=== PATIENT | female | born 1965 | race Hispanic/Latino ===

== ENCOUNTER 2016-12-27 10:04 | Emergency (ER) | payer MEDICARE ==
[2016-12-27 10:29] VITALS: PULSE 88; RESP 20; TEMP 98; O2SAT 97
--- NOTE | 2016-12-27 11:06 | ED PDOC ---
HPI: Head Injury Time Seen by Provider: 12/27/16 10:40 Chief Complaint (Nursing): Headache Chief Complaint (Provider): Head injury History Per: Patient History/Exam Limitations: no limitations Injury Occurred (Timing): Hours Ago: (1) Additional Complaint(s): Aleena is a 51 y/o female who presents to the ED for evaluation of head injury. States that she had a heavy object fall from 2 ft onto her head, 1 hour prior to ER arrival. No loss of consciousness. Noted moderate pain and swelling initially, which resolved after icing the area. Patient concerned because of history of head trauma 6 years ago that resulted in ongoing vestibular dysfunction. Denies any vomiting, weakness, or alcohol consumption today. Blood pressure taken manually was 130/70 PMD: None Past Medical History Reviewed: Historical Data, Nursing Documentation, Vital Signs Vital Signs: Last Vital Signs Temp 98 F 12/27/16 10:24 Pulse 88 12/27/16 10:24 Resp 20 12/27/16 10:24 BP Pulse Ox 97 12/27/16 10:24 - Medical History Other PMH: vestibular dysfunction - Family History Family History: States: Unknown Family Hx - Allergies Allergies/Adverse Reactions: Allergies Allergy/AdvReac Type Severity Reaction Status Date / Time No Known Allergies Allergy Verified 12/27/16 10:24 Review of Systems ROS Statement: Except As Marked, All Systems Reviewed And Found Negative Constitutional: Positive for: Other (Head trauma) Neurological: Positive for: Headache. Negative for: Other (Loss of consciousness) Physical Exam - Reviewed Nursing Documentation Reviewed: Yes Vital Signs Reviewed: Yes - Physical Exam Appears: Positive for: Non-toxic, No Acute Distress Head Exam: Positive for: ATRAUMATIC, NORMAL INSPECTION (no oculus swelling or laceration noted to posterior head), NORMOCEPHALIC Skin: Positive for: Normal Color, Warm, Dry Eye Exam: Positive for: EOMI, Normal appearance, PERRL ENT: Positive for: Normal ENT Inspection Neck: Positive for: Normal, Supple Cardiovascular/Chest: Positive for: Regular Rate, Rhythm. Negative for: Murmur Respiratory: Positive for: Normal Breath Sounds. Negative for: Accessory Muscle Use, Respiratory Distress Gastrointestinal/Abdominal: Positive for: Normal Exam, Soft. Negative for: Tenderness Back: Positive for: Normal Inspection Extremity: Positive for: Normal ROM (but has difficulty performing heel to currie) , Other (5/5 strength upper and lower extremities). Negative for: Deformity Neurologic/Psych: Positive for: Alert, sponge clipper II-XII (intact), Oriented. Negative for: Motor/Sensory Deficits - ECG O2 Sat by Pulse Oximetry: 97 (RA) Pulse Ox Interpretation: Normal - Progress ED Course And Treament: Head CT: nad Medical Decision Making Medical Decision Making: Time: 10:52 Initial Plan: --Extensive discussion about the risks and benefits of CT scan --Patient requesting CT evaluation of head injury at this time --Will order CT Head w/o contrast Scribe Attestation: Documented by Esme Rayo, acting as a scribe for Jorge Rosa PA-C Provider Scribe Attestation: All medical record entries made by the Scribe were at my direction and personally dictated by me. I have reviewed the chart and agree that the record accurately reflects my personal performance of the history, physical exam, medical decision making, and the department course for this patient. I have also personally directed, reviewed, and agree with the discharge instructions and disposition. Disposition - Clinical Impression Clinical Impression: Head injury - Patient ED Disposition Is Patient to be Admitted: No - Disposition Disposition: Routine/Home Disposition Time: 12:05 Condition: FAIR Instructions: Head Injury (ED) Forms: [employer] (Urdu)
[2016-12-27 11:16] VITALS: BP 130/70
--- NOTE | 2016-12-27 11:25 | CT ---
PROCEDURE: CT HEAD WITHOUT CONTRAST. HISTORY: HEAD INJURY COMPARISON: 11/14/2010. TECHNIQUE: Axial computed tomography images were obtained through the head/brain without intravenous contrast. Coronal and sagittal reconstructed images. Radiation dose: Total exam DLP = 831.84 mGy-cm. This CT exam was performed using one or more of the following dose reduction techniques: Automated exposure control, adjustment of the mA and/or kV according to patient size, and/or use of iterative reconstruction technique. FINDINGS: HEMORRHAGE: No intracranial hemorrhage. BRAIN: No mass effect or edema. No atrophy or chronic microvascular ischemic changes. VENTRICLES: Unremarkable. No hydrocephalus. CALVARIUM: Unremarkable. PARANASAL SINUSES: Unremarkable as visualized. No significant inflammatory changes. MASTOID AIR CELLS: Unremarkable as visualized. No inflammatory changes. OTHER FINDINGS: None. IMPRESSION: No acute intracranial abnormalities. No significant findings to account for the clinical presentation. No significant interval change compared to the prior examination(s).
== END 2016-12-27 13:39 | disposition home or self-care (01) ==
LOC: H.ER 10:04
DX: S09.90XA Unspecified injury of head, initial encounter (principal); W22.8XXA Striking against or struck by other objects, initial encounter; Y92.89 Other specified places as the place of occurrence of the external cause

== ENCOUNTER 2017-06-22 16:09 | Emergency (ER) | payer MEDICARE, BC ==
[2017-06-22 16:52] VITALS: BP 140/83; O2SAT 100
[2017-06-22 19:07] LABS: BASO # 0.1 K/uL (0.0-0.2); BASO % 0.5 % (0.0-2.0); EOS # 0.1 K/uL (0.0-0.7); EOS % 0.6 % (0.0-4.0); HEMOGLOBIN 12.7 g/dL (12.0-16.0); LYMPH # 2.8 K/uL (1.0-4.3); LYMPH % 21.3 % (20.0-40.0); MEAN CELL VOLUME 88.7 fl (81.0-99.0); MEAN CORPUSCULAR HEMOGLOBIN 30.1 pg (27.0-31.0); MEAN PLATELET VOLUME 7.8 fl (7.2-11.7); MONO # 0.8 K/uL (0.0-0.8); NEUT # 9.3 K/uL (1.8-7.0); NEUT % 71.6 % (50.0-75.0); NRBC % 0.1 % (0.0-0.0); RBC 4.22 Mil/uL (3.80-5.20); RED CELL DISTRIBUTION WIDTH 13.6 % (11.5-14.5)
[2017-06-22 19:20] LABS: ALB/GLOB RATIO 1.2 (1.0-2.1); ALT/SGPT 34 U/L (9-52); AST/SGOT 21 U/L (14-36); BLOOD UREA NITROGEN 12 mg/dl (7-17); CALCIUM 9.3 mg/dL (8.4-10.2); GFR AFRICAN-AMERICAN > 60; GFR NON-AFRICAN AMERICAN > 60
--- NOTE | 2017-06-22 19:31 | ED PDOC ---
HPI: General Adult Time Seen by Provider: 06/22/17 17:05 Chief Complaint (Nursing): GI Problem History Per: Patient Additional Complaint(s): Pt. states today she developed crampy abdominal pain with the urge to use defecate. States she strained to have a BM and afterwards she lied down as she developed chills which has since resolved. Also states that pain resolved after defecating. Denies chest pain, SOB, palpitations, weakness, fever, melena, hematochezia, BRBPR, rectal pain. Past Medical History Reviewed: Historical Data, Nursing Documentation, Vital Signs Vital Signs: Last Vital Signs Temp 97.7 F 06/22/17 20:10 Pulse 88 06/22/17 20:10 Resp 18 06/22/17 20:10 BP 140/83 06/22/17 16:45 Pulse Ox 100 06/24/17 11:07 - Surgical History Surgical History: Appendectomy - Family History Family History: States: No Known Family Hx - Immunization History Hx Tetanus Toxoid Vaccination: No Hx Influenza Vaccination: No Hx Pneumococcal Vaccination: No - Allergies Allergies/Adverse Reactions: Allergies Allergy/AdvReac Type Severity Reaction Status Date / Time acetaminophen [From Percocet] Allergy RASH Verified 06/22/17 16:53 piper Allergy RASH Verified 06/22/17 16:53 clarithromycin [From Biaxin] Allergy RASH Verified 06/22/17 16:53 oxycodone [From Percocet] Allergy RASH Verified 06/22/17 16:53 Penicillins Allergy ANAPHYLAXIS Verified 06/22/17 16:53 red dye Allergy RASH Verified 06/22/17 16:53 Review of Systems ROS Statement: Except As Marked, All Systems Reviewed And Found Negative Gastrointestinal: Positive for: Abdominal Pain, Constipation Physical Exam - Physical Exam Appears: Positive for: Well, Non-toxic, No Acute Distress Skin: Positive for: Normal Color, Warm. Negative for: Rash Eye Exam: Positive for: Normal appearance Neck: Positive for: Normal, Painless ROM Cardiovascular/Chest: Positive for: Regular Rate, Rhythm Respiratory: Positive for: CNT, Normal Breath Sounds Gastrointestinal/Abdominal: Positive for: Normal Exam, Bowel Sounds, Soft. Negative for: Tenderness, Distended Back: Positive for: Normal Inspection. Negative for: L CVA Tenderness, R CVA Tenderness Extremity: Positive for: Normal ROM Neurologic/Psych: Positive for: Alert, Oriented - Laboratory Results Result Diagrams: 06/22/17 18:36 06/22/17 18:36 - ECG O2 Sat by Pulse Oximetry: 100 - Radiology X-Ray: Interpreted by Me (Obstructive series) X-Ray Interpretation: Other (stool; no obstruction) - Progress ED Course And Treament: Pt. refused IV line. Pt. informed of blood work and X-ray results and informed that she will require CT abd/pelvis W/ IV contrast but still refused IV and also refused oral contrast. States that she is scared she may develop an allergy to it despite not taking IV contrast in the past. Long discussion was made with patient with and informed that optimal view of abd/pelvis is best made with IV or PO contrast. Pt. still refused and prefers to have CT done without contrast. CT abd/pelvis w/o contrast ordered. Disposition - Clinical Impression Clinical Impression: Constipation, Abdominal pain - Patient ED Disposition Is Patient to be Admitted: Transfer of Care (Signed out to Yuridia ALVAREZ pending CT results and final disposition.) - Disposition Disposition: Transfer of Care Disposition Time: 20:00 Condition: IMPROVED Instructions: Constipation in Adults, Acute Abdomen (Belly Pain), Adult (DC) Forms: [employer] (S[place] Leonean)
[2017-06-22 20:11] VITALS: PULSE 88; RESP 18; TEMP 97.7
--- NOTE | 2017-06-22 20:55 | ED PDOC ---
- Laboratory Results Result Diagrams: 06/22/17 18:36 06/22/17 18:36 - ECG O2 Sat by Pulse Oximetry: 100 - Progress ED Course And Treament: Case endorsed to junior copywriter from Devon ALVAREZ pending imaging, re-eval EXAM: CT Abdomen and Pelvis Without Intravenous Contrast CLINICAL HISTORY: The patient is a 52 years female; Pain; Abdominal pain; Localized; Left; Prior surgery; Surgery date: 6+ months; Surgery type: Appendix; Additional info: Abdominal pain; Constipation ; Chills 06/22/2017 8:02 PM TECHNIQUE: Axial computed tomography images of the abdomen and pelvis without intravenous contrast. All CT scans at this facility use one or more dose reduction techniques, viz.: automated exposure control; ma/kV adjustment per patient size (including targeted exams where dose is matched to indication; i.e. head); or iterative reconstruction technique. COMPARISON: No relevant prior studies available. FINDINGS: Lower thorax: <No significant pleural effusions.> ABDOMEN: Liver: Unremarkable. Gallbladder and bile ducts: Unremarkable. No calcified stones. No ductal dilation. Pancreas: Unremarkable. No ductal dilation. Spleen: Unremarkable. No splenomegaly. Adrenals: Bilateral adrenal thickening. Kidneys and ureters: Unremarkable. No obstructing stones. No hydronephrosis. Stomach and bowel: Scattered diverticulosis of the colon. No evidence of diverticulitis. Appendix: Appendectomy. PELVIS: Bladder: Partially Reproductive: Unremarkable as visualized. ABDOMEN and PELVIS: Intraperitoneal space: Unremarkable. No free air. No significant fluid collection. Bones/joints: Grade 1 anterolisthesis of L5 on S1. Spondylolysis at L5 identified. No acute fracture. No dislocation. Soft tissues: Small fat containing umbilical hernia. Vasculature: Unremarkable. No abdominal aortic aneurysm. Lymph nodes: Unremarkable. No enlarged lymph nodes. IMPRESSION: Scattered diverticulosis of the colon. No evidence of diverticulitis. Patient educated on findings, discharged with instructions to follow up GI ( patient has her own in [place]) Advised stool softeners, but patient would rather try diet modification first. REturn precautions given. Disposition - Clinical Impression Clinical Impression: Constipation, Abdominal pain - POA Present On Arrival: None - Disposition Disposition: Routine/Home Disposition Time: 23:23 Condition: IMPROVED Instructions: Constipation in Adults, Acute Abdomen (Belly Pain), Adult (DC) Forms: [employer] (German)
[2017-06-22 23:11] LABS: SQUAMOUS EPITHIAL 11 /hpf (0-5); URINE BACTERIA RARE (<OCC); URINE BILIRUBIN NEGATIVE (NEGATIVE); URINE BLOOD NEGATIVE (NEGATIVE); URINE CLARITY CLOUDY (Clear); URINE COLOR YELLOW (YELLOW); URINE GLUCOSE (UA) NEG (Normal); URINE LEUKOCYTE ESTERASE LARGE Leu/uL (Negative); URINE PROTEIN NEGATIVE (NEGATIVE); URINE UROBILINOGEN 0.2-1.0 mg/dL (0.2-1.0)
--- NOTE | 2017-06-23 08:02 | RAD ---
PROCEDURE: Radiographs of the chest and abdomen (obstructive series) HISTORY: constipation COMPARISON: No prior. TECHNIQUE: AP radiograph of the chest, with upright and supine radiographs of the abdomen. FINDINGS: CHEST: Lungs: No acute pulmonary findings bilaterally. Cardiovascular: Normal size heart. No pulmonary vascular congestion. Pleura: No pleural fluid. No pneumothorax. Other findings: None. ABDOMEN AND PELVIS: Bowel: Unremarkable bowel gas pattern. No evidence of mechanical obstruction. Free air: None. Bones: Unremarkable. Other findings: Nonspecific calcifications are identified in the left greater than right inferior pelvis soft tissues, many which may represent phleboliths. Ultimately, there etiology is indeterminate based on this limited exam. IMPRESSION: Nonobstructive bowel gas pattern. No free air spare the as grossly evident. Nonacute chest radiograph.
--- NOTE | 2017-06-23 10:59 | CT ---
PROCEDURE: CT Abdomen and Pelvis without intravenous contrast HISTORY: abdominal pain; constipation; chills COMPARISON: None. TECHNIQUE: Helical CT of the abdomen and pelvis was performed without oral or intravenous contrast as per referring physician request.. Contrast Dose: None Radiation dose: Total exam DLP = 1033.26 mGy-cm. This CT exam was performed using one or more of the following dose reduction techniques: Automated exposure control, adjustment of the mA and/or kV according to patient size, and/or use of iterative reconstruction technique. FINDINGS: LOWER THORAX: Unremarkable. LIVER: Unremarkable. No gross lesion or ductal dilatation. GALLBLADDER AND BILE DUCTS: Unremarkable. PANCREAS: Unremarkable. No gross lesion or ductal dilatation. SPLEEN: Unremarkable. ADRENALS: Unremarkable. No mass. KIDNEYS AND URETERS: Unremarkable. No hydronephrosis. No solid mass. VASCULATURE: Unremarkable. No aortic aneurysm. BOWEL: Lack of contrast agents limits evaluation of large and small bowel as well as stomach. No bowel obstruction is appreciated. Sigmoid diverticular changes appear nonacute and there is mildly prominent fecal loading throughout the proximal half of the colon. The stomach is collapsed. APPENDIX: Appendix is not identified however surgical clips seen at the right lower quadrant suggesting prior cholecystectomy. Clinically correlate further. PERITONEUM: Unremarkable. No free fluid. No free air. A tiny umbilical hernia contains only mesenteric fat. LYMPH NODES: Unremarkable. No enlarged lymph nodes. BLADDER: Collapsed and otherwise unremarkable. REPRODUCTIVE: Unremarkable. BONES: Grade 1 spondylolisthesis L5-S1. OTHER FINDINGS: None. IMPRESSION: 1. Limited examination due lack of contrast agents. No definitive acute findings appreciable throughout the abdomen or pelvis. 2. Sigmoid diverticulosis without diverticulitis. 3. No CT pattern appendicitis. Prior appendectomy pattern may be present. Clinically correlate further.
== END 2017-06-22 23:34 | disposition home or self-care (01) ==
LOC: H.ER 16:09
DX: K59.00 Constipation, unspecified (principal); R10.9 Unspecified abdominal pain